=== PATIENT | female | born 1965 | race Caucasian/White ===

== ENCOUNTER 2018-02-03 20:00 | Emergency (ER) | payer BC, OTHER ==
--- NOTE | 2018-02-03 20:42 | RAD ---
AP VIEW CHEST: 02/03/18 HISTORY: Chest pain. AP view chest is obtained on 02/03/18. Comparison made to previous exam from 08/09/12. AP view chest demonstrates the lungs to be well aerated. No evidence of active intrathoracic disease seen. No evidence of effusions, pneumonia or pneumothorax seen. IMPRESSION: Unremarkable AP view chest. POS: [facility]
[2018-02-03 21:02] LABS: Hemoglobin 13.3 g/dL (12.0-16.0); Mean Corpuscular Volume 87.9 fL (78.0-98.0); Red Blood Cell (RBC) Count 4.43 mill/uL (4.20-5.40)
[2018-02-03 21:03] LABS: #Neutrophils 4.6 thou/uL (1.40-6.50); %Basophils 1.2 % (0.0-1.0); %Eosinophils 1.9 % (0.0-10.0); %Lymphocytes 33.4 % (21.0-51.0); %Monocytes 6.6 % (0.0-10.0); %Neutrophils 56.9 % (42.0-75.0); Mean Corpuscular HGB CONC 34.3 g/dL (32.0-36.0); Mean Corpuscular Hemoglobin 30.1 pg (27.0-31.0); Mean Platelet Volume 7.6 fL (7.4-10.4); Platelet Count 347 thou/uL (130-400); RBC Distribution Width 11.1 % (11.5-14.5)
[2018-02-03 21:04] LABS: #Basophils 0.1 thou/uL (0.0-0.2); #Eosinphils 0.2 thou/uL (0.0-0.7); #Lymphocytes 2.7 thou/uL (1.20-3.40); #Monocytes 0.5 thou/uL (0.11-0.59)
[2018-02-03 21:05] LABS: CKMB 4.3 ng/mL (0-6.6); Troponin I Less than 0.010 ng/mL (< 0.028)
[2018-02-03 21:06] LABS: BUN (Urea Nitrogen) 15 mg/dL (9.8-20.1); Calc. Creatinine Clearance 0 mL/min (70-130); Carbon Dioxide 28 mmol/L (22-29); Chloride 104 mmol/L (98-107); Estimated GFR-MDRD 64; Potassium 3.6 mmol/L (3.5-5.1); Sodium 140 mmol/L (136-145)
[2018-02-03 21:07] LABS: ALT (SGPT) 24 U/L (8-55); AST (SGOT) 25 U/L (5-34); Albumin 4.3 g/dL (3.5-5.0); Alkaline Phosphatase 79 U/L (40-150); Bilirubin, Total 0.3 mg/dL (0.2-1.2); CK (CPK) 220 U/L (29-168); Calcium 9.5 mg/dL (7.8-10.44); Globulin 2.8 g/dL (2.4-3.5); Glucose 101 mg/dL (70-105); Protein, Total 7.1 g/dL (6.0-8.3)
[2018-02-03 21:09] LABS: Anion Gap 12 mmol/L (10-20)
[2018-02-03 22:33] LABS: Troponin I Less than 0.010 ng/mL (< 0.028)
== END 2018-02-03 22:44 | disposition home or self-care (01) ==
LOC: SCSER 20:00
DX: R07.89 Other chest pain (principal); I10 Essential (primary) hypertension; F41.9 Anxiety disorder, unspecified; F32.9 Major depressive disorder, single episode, unspecified; Z79.899 Other long term (current) drug therapy
CPT/HCPCS: 71045; 80053; 82553; 84484; 85025; 93005

== ENCOUNTER 2018-12-09 13:20 | Emergency (ER) | payer BC | END 2018-12-09 14:18 | disposition home or self-care (01) | LOC: SCSER 13:20 | DX: J32.9 Chronic sinusitis, unspecified (principal); F41.9 Anxiety disorder, unspecified; F32.9 Major depressive disorder, single episode, unspecified; Z79.899 Other long term (current) drug therapy | CPT/HCPCS: 99282 ==

== ENCOUNTER 2019-01-21 21:20 | Emergency (ER) | payer BC ==
[2019-01-21] MEDS ORDERED: Ketorolac Tromethamine 30 MG/ML VIAL ONE ×2 (21:56)
--- NOTE | 2019-01-21 23:04 | RAD ---
XR Cerv Sp Ap Lat STANDARD HISTORY: Neck pain radiating into left arm. COMPARISON: None. FINDINGS: The patient has undergone anterior cervical fusion. There is been placement of a plate and screws extending from C5 to C7. Moderate disc narrowing is seen at C4-5. No soft tissue swelling. Degenerative facet changes are noted. IMPRESSION: Postoperative changes and moderate arthritic changes of the spine.
--- NOTE | 2019-01-21 23:05 | RAD ---
XR Lumbar Spine 2 Or 3 View HISTORY: Low back pain. COMPARISON: None. FINDINGS: The vertebral bodies are normal in height. There are degenerative osteophytes along the cou rse of the lumbar spine. There is marked degenerative disc narrowing at L4-5. Pedicles appear intact. IMPRESSION: Marked degenerative disc narrowing at L4-5.
== END 2019-01-21 23:51 | disposition home or self-care (01) ==
LOC: ERS 21:20
DX: S16.1XXA Strain of muscle, fascia and tendon at neck level, initial encounter (principal); S39.012A Strain of muscle, fascia and tendon of lower back, initial encounter; M54.12 Radiculopathy, cervical region; F32.9 Major depressive disorder, single episode, unspecified; F41.9 Anxiety disorder, unspecified; F90.9 Attention-deficit hyperactivity disorder, unspecified type; Z79.899 Other long term (current) drug therapy; X50.9XXA Other and unspecified overexertion or strenuous movements or postures, initial encounter
CPT/HCPCS: 72040; 72100; 96372; J1885

== ENCOUNTER 2020-07-25 15:12 | Outpatient (CLI) | payer BC | END 2020-07-25 15:13 | disposition home or self-care (01) | LOC: BICRAD 15:12 | PROVIDERS: ATTEND Nurse Practitioner Family | DX: M51.36 Other intervertebral disc degeneration, lumbar region (principal); M54.6 Pain in thoracic spine; M47.22 Other spondylosis with radiculopathy, cervical region; M47.814 Spondylosis without myelopathy or radiculopathy, thoracic region; M47.816 Spondylosis without myelopathy or radiculopathy, lumbar region; Z98.1 Arthrodesis status | CPT/HCPCS: 72050; 72072; 72110 ==

== ENCOUNTER 2020-08-12 08:43 | Outpatient (CLI) | payer BC | END 2020-08-12 08:44 | disposition home or self-care (01) | LOC: SCSMRI 08:43 | PROVIDERS: ATTEND Nurse Practitioner Family | DX: M47.22 Other spondylosis with radiculopathy, cervical region (principal); Z98.1 Arthrodesis status | CPT/HCPCS: 72141 ==

== ENCOUNTER 2020-09-04 13:14 | Emergency (ER) | payer BC ==
[2020-09-04] MEDS ORDERED: Ketorolac Tromethamine 30 MG/ML VIAL ONE (15:47)
[2020-09-04] MEDS ORDERED: predniSONE 20 MG TAB ONE (15:47)
== END 2020-09-04 16:05 | disposition home or self-care (01) ==
LOC: ERS 13:14
DX: M54.12 Radiculopathy, cervical region (principal); M62.838 Other muscle spasm; Z87.891 Personal history of nicotine dependence; Z79.82 Long term (current) use of aspirin; Z79.891 Long term (current) use of opiate analgesic; Z79.899 Other long term (current) drug therapy
CPT/HCPCS: 96372; 99283; J1885; J7512

== ENCOUNTER 2020-11-04 15:02 | Outpatient (CLI) | payer BC | END 2020-11-04 15:03 | disposition home or self-care (01) | LOC: LABBT 15:02 | PROVIDERS: ATTEND Surgery | DX: Z01.818 Encounter for other preprocedural examination (principal); M50.10 Cervical disc disorder with radiculopathy, unspecified cervical region; M48.02 Spinal stenosis, cervical region; Z20.822 Contact with and (suspected) exposure to COVID-19 | CPT/HCPCS: 80048; 85027; 85610; 85730; 86850; 86900; 86901; 93005; 93010; U0003; U0005 ==

== ENCOUNTER 2020-11-07 06:08 | Observation (INO) | payer BC ==
[2020-11-04 16:08] LABS: Mean Corpuscular HGB CONC 32.4 g/dL (32.0-36.0); Mean Corpuscular Hemoglobin 30.2 pg (27.0-33.0); Mean Corpuscular Volume 93.3 fl (81.6-98.3); Mean Platelet Volume 9.6 fl (7.4-10.4); Platelet Count 469 10x3/uL (150-450); RBC Distribution Width 12.4 % (11.5-14.5); White Blood Cell (WBC) Count 7.3 10x3/uL (3.5-10.5)
[2020-11-04 16:24] LABS: INR-International Normal Ratio 0.9; PTT 26.6 sec (22.0-33.0); Prothrombin Time 10.2 sec (9.5-12.1)
[2020-11-04 16:28] LABS: Anion Gap 12 mmol/L (10-20); BUN (Urea Nitrogen) 15 mg/dL (9.8-20.1); Calc. Creatinine Clearance 0 mL/min (70-130); Calcium 9.4 mg/dL (7.8-10.44); Carbon Dioxide 26 mmol/L (22-29); Chloride 105 mmol/L (98-107); Glucose 87 mg/dL (70-105); Potassium 3.9 mmol/L (3.5-5.1); Sodium 139 mmol/L (136-145)
[2020-11-05 08:03] LABS: SARS-CoV-2 PCR by NAA Not Detected (NotDetected)
[2020-11-07] MEDS ORDERED: Clindamycin/D5W 900 mg/50 ml Premix Bag ONE (06:38)
[2020-11-07] MEDS ORDERED: Levofloxacin 500 mg/D5W 100 ml Premix Bag ONE (06:38)
[2020-11-07] MEDS ORDERED: Thrombin 5000 UNITS/5 ML VIAL ONE (06:40)
[2020-11-07] MEDS ORDERED: Fentanyl 250 MCG/5 ML VIAL ONE (06:55)
[2020-11-07] MEDS ORDERED: Propofol 1,000 MG/100 ML VIAL IV ONE (07:05)
[2020-11-07] MEDS ORDERED: Dexmedetomidine 200 MCG/2 ML VIAL ONE (07:05)
[2020-11-07] MEDS ORDERED: Midazolam HCl 2 mg/2 ml Vial ONE (07:23)
[2020-11-07] MEDS ORDERED: Rocuronium Bromide 10 MG/ML (10ML VIAL) ONE (07:51)
[2020-11-07] MEDS ORDERED: Lidocaine 1% PF 5 ML VIAL ONE (07:51)
[2020-11-07] MEDS ORDERED: PROPOFOL 200 MG/20 ML VIAL ONE (07:51)
[2020-11-07] MEDS ORDERED: Dexamethasone 20 MG/5 ML VIAL ONE (07:51)
[2020-11-07] MEDS ORDERED: Ondansetron PF 4 MG/2 ML Vial ONE (07:51)
[2020-11-07] MEDS ORDERED: Ondansetron HCl/PF 4 MG/2 ML Vial IVP PRN (09:51)
[2020-11-07] MEDS ORDERED: Promethazine HCl 25 MG/ML VIAL IM PRN (09:51)
[2020-11-07] MEDS ORDERED: Promethazine HCl 25 MG/ML VIAL IVPB PRN (09:51)
[2020-11-07] MEDS ORDERED: SUGAMMADEX SODIUM 200 MG/2 ML VIAL ONE (10:06)
[2020-11-07] MEDS ORDERED: HYDROmorphone 2 MG/ML VIAL ONE (10:27)
[2020-11-07] MEDS ORDERED: Ondansetron PF 4 MG/2 ML Vial IVP PRN (10:30)
[2020-11-07] MEDS ORDERED: traMADol HCl 50 MG TAB PO PRN (10:30)
[2020-11-07] MEDS ORDERED: Acetaminophen 325 MG TAB PO PRN (10:30)
[2020-11-07] MEDS ORDERED: Acetaminophen/Codeine 30-300mg Tablet PO PRN ×2 (10:33→11:20)
[2020-11-07] MEDS ORDERED: Fentanyl 100 MCG/2 ML VIAL ONE (10:50)
[2020-11-07] MEDS ORDERED: Promethazine HCl 25 MG/ML VIAL ONE (11:38)
[2020-11-07] MEDS: Morphine 2 MG/ML VIAL SLOW IVP PRN ×2 (14:59→19:58)
[2020-11-07] MEDS: Clindamycin/D5W 900 MG in Premix Bag 1 BAG IVPB SCH ×2 (15:01→20:50)
[2020-11-07] MEDS: Cyclobenzaprine 10 MG TAB PO PRN (15:01)
[2020-11-07] MEDS: oxyCODONE 5 MG TAB PO PRN (17:44)
[2020-11-07 18:38] VITALS: BMI 28.5
[2020-11-07] MEDS: Sodium Chloride 0.9% 1,000 ML IV SCH (19:08)
[2020-11-07] MEDS ORDERED: Gabapentin 300 MG CAP PO SCH (21:00)
[2020-11-07] MEDS ORDERED: DULoxetine 60 MG CAP PO SCH (21:00)
[2020-11-08] MEDS: Cyclobenzaprine 10 MG TAB PO PRN ×2 (00:09→05:58)
[2020-11-08] MEDS: oxyCODONE 5 MG TAB PO PRN ×3 (00:10→11:47)
[2020-11-08 04:14] VITALS: TEMP 98.2
[2020-11-08] MEDS: Sodium Chloride 0.9% 1,000 ML IV SCH (04:52)
[2020-11-08] MEDS: Clindamycin/D5W 900 MG in Premix Bag 1 BAG IVPB SCH (05:58)
[2020-11-08] MEDS ORDERED: Bupropion 150 MG XL TAB PO SCH (09:00)
[2020-11-08] MEDS ORDERED: Triamterene/Hydrochlorothiazide 37.5 mg/25 mg Tablet PO SCH (09:00)
[2020-11-08] MEDS: Morphine 2 MG/ML VIAL SLOW IVP PRN (09:56)
[2020-11-08] MEDS ORDERED: diphenhydrAMINE 25 MG CAP PO PRN (10:49)
[2020-11-08 11:41] VITALS: BP 104/70
[2020-11-08 19:56] LABS: SARS-CoV-2 IgG Ab Non-Reactive (NonReactive)
[2020-11-08 19:57] LABS: SARS-CoV-2 IgG Index 0.86 S/CO (< 1.40)
== END 2020-11-08 14:40 | disposition home or self-care (01) ==
LOC: SDC 06:08 → SURG A 13:20
PROVIDERS: ADMIT Surgery; ATTEND Surgery
PROC: 0RG40A0 Fusion of Cervicothoracic Vertebral Joint with Interbody Fusion Device, Anterior Approach, Anterior Column, Open Approach (ICD-10-PCS; principal; 2020-11-07)
PROC: 0RG10J1 Fusion of Cervical Vertebral Joint with Synthetic Substitute, Posterior Approach, Posterior Column, Open Approach (ICD-10-PCS; 2020-11-07)
DX: M50.13 Cervical disc disorder with radiculopathy, cervicothoracic region (principal); M48.02 Spinal stenosis, cervical region; I10 Essential (primary) hypertension; M19.90 Unspecified osteoarthritis, unspecified site; J45.909 Unspecified asthma, uncomplicated; Z79.899 Other long term (current) drug therapy; Z88.0 Allergy status to penicillin; Z88.1 Allergy status to other antibiotic agents; Z88.5 Allergy status to narcotic agent; Z91.040 Latex allergy status; Z91.018 Allergy to other foods; Z98.1 Arthrodesis status; Z20.822 Contact with and (suspected) exposure to COVID-19
CPT/HCPCS: 36415; 76000; 80048; 85027; 85610; 85730; 86769; 86850; 86900; 86901; 96374; 96375; 96376; C1713; C1776; G0378; J1100; J1170; J1956; J2250; J2270; J2405; J2550; J2704; J3010; J3490; U0003; U0005

== ENCOUNTER 2020-12-18 09:59 | Outpatient (CLI) | payer BC | END 2020-12-18 10:00 | disposition home or self-care (01) | LOC: BICRAD 09:59 | PROVIDERS: ATTEND Physician Assistant | DX: M48.02 Spinal stenosis, cervical region (principal); M50.20 Other cervical disc displacement, unspecified cervical region; M47.812 Spondylosis without myelopathy or radiculopathy, cervical region; Z98.1 Arthrodesis status | CPT/HCPCS: 72040 ==

== ENCOUNTER 2020-12-26 10:39 | Outpatient (CLI) | payer BC | END 2020-12-26 10:40 | disposition home or self-care (01) | LOC: BICRAD 10:39 | PROVIDERS: ATTEND Physician Assistant | DX: M48.02 Spinal stenosis, cervical region (principal); M50.20 Other cervical disc displacement, unspecified cervical region; M47.812 Spondylosis without myelopathy or radiculopathy, cervical region; Z98.1 Arthrodesis status; V89.2XXD Person injured in unspecified motor-vehicle accident, traffic, subsequent encounter | CPT/HCPCS: 72040 ==

== ENCOUNTER 2021-03-01 23:17 | Emergency (ER) | payer BC | END 2021-03-02 00:07 | disposition home or self-care (01) | LOC: ERS 23:17 | DX: L25.9 Unspecified contact dermatitis, unspecified cause (principal); J45.909 Unspecified asthma, uncomplicated; Z87.891 Personal history of nicotine dependence | CPT/HCPCS: 99282 ==

== ENCOUNTER 2021-05-22 09:30 | Outpatient (CLI) | payer BC | END 2021-05-22 09:31 | disposition home or self-care (01) | LOC: SCSMRI 09:30 | PROVIDERS: ATTEND Specialist | DX: M47.22 Other spondylosis with radiculopathy, cervical region (principal); M47.24 Other spondylosis with radiculopathy, thoracic region; Z98.890 Other specified postprocedural states | CPT/HCPCS: 72141 ==

== ENCOUNTER 2022-05-27 10:05 | Outpatient (CLI) | payer BC ==
[2022-05-27 14:59] LABS: #Basophils 0.1 thou/uL (0.0-0.2); #Eosinphils 0.1 thou/uL (0.0-0.7); #Lymphocytes 1.9 thou/uL (1.20-3.40); #Monocytes 0.4 thou/uL (0.11-0.59); %Basophils 1.2 % (0.0-1.0); %Eosinophils 1.6 % (0.0-10.0); %Lymphocytes 35.8 % (21.0-51.0); %Monocytes 6.5 % (0.0-10.0); Mean Corpuscular HGB CONC 33.8 g/dL (32.0-36.0); Mean Corpuscular Hemoglobin 31.7 pg (27.0-31.0); Mean Platelet Volume 7.4 fL (7.4-10.4); Platelet Count 386 10x3/uL (130-400); RBC Distribution Width 11.8 % (11.5-14.5); Red Blood Cell (RBC) Count 4.42 mill/uL (4.20-5.40); White Blood Cell (WBC) Count 5.4 10x3/uL (4.8-10.8)
[2022-05-27 15:38] LABS: Bacteria/HPF None Seen HPF (None Seen); Bilirubin Negative (Negative); Blood, Urine Negative (Negative); Clarity Clear (Clear); Glucose, Urine (Dipstick) Normal (Negative); Ketone, Urine Negative (Negative); Leukocyte Negative Leu/uL (Negative); Nitrite Negative (Negative); Protein, Urine (Dipstick) 30 mg/dL (Neg-Trace); RBC/HPF 0-3 HPF (0-3); Urobilinogen Normal mg/dL (Less than 2); WBC/HPF 0-3 HPF (0-3); pH, Urine 5.5 (5.0-9.0)
[2022-05-27 15:42] LABS: ALT (SGPT) 23 U/L (8-55); AST (SGOT) 20 U/L (5-34); Albumin 4.5 g/dL (3.5-5.0); Alkaline Phosphatase 80 U/L (40-110); Anion Gap 14 mmol/L (10-20); BUN (Urea Nitrogen) 13 mg/dL (9.8-20.1); Bilirubin, Total 0.5 mg/dL (0.2-1.2); Calc. Creatinine Clearance 0 mL/min (70-130); Calcium 9.4 mg/dL (7.8-10.44); Carbon Dioxide 21 mmol/L (22-29); Cardiac Risk 3.4 (Less than 4.5); Chloride 109 mmol/L (98-107); Cholesterol 223 mg/dl (< 200 Desired); Estimated GFR 78; Globulin 2.4 g/dL (2.4-3.5); Glucose 97 mg/dL (70-105); HDL Cholesterol 66 mg/dL (>60 Neg Risk); LDL Cholesterol, Calculated 139 mg/dL; Potassium 4.2 mmol/L (3.5-5.1); Protein, Total 6.9 g/dL (6.0-8.3); Sodium 140 mmol/L (136-145); Triglycerides 89 mg/dL (Less than 150)
[2022-05-27 16:04] LABS: Thyroid Stimulating Hormone 1.1927 uIU/mL (0.35-4.94); Vitamin D, 25 Hydroxy 26.9 ng/ml (> 30.0)
== END 2022-05-27 10:06 | disposition home or self-care (01) ==
LOC: SCSRAD 10:05
PROVIDERS: ATTEND Family Medicine
DX: Z00.00 Encounter for general adult medical examination without abnormal findings (principal); M79.645 Pain in left finger(s); E55.9 Vitamin D deficiency, unspecified
CPT/HCPCS: 36415; 80053; 80061; 81001; 82306; 84443; 85025

== ENCOUNTER 2023-02-23 11:30 | Outpatient (CLI) | payer BC | END 2023-02-23 11:31 | disposition home or self-care (01) | LOC: SCSMRI 11:30 | PROVIDERS: ATTEND Physician Assistant | DX: H90.3 Sensorineural hearing loss, bilateral (principal) | CPT/HCPCS: 70553 ==

== ENCOUNTER 2024-11-16 13:15 | Outpatient (CLI) | payer BC | END 2024-11-16 13:16 | disposition home or self-care (01) | LOC: SCSMRI 13:15 | PROVIDERS: ATTEND Surgery | DX: M48.02 Spinal stenosis, cervical region (principal); M48.03 Spinal stenosis, cervicothoracic region | CPT/HCPCS: 72141 ==

== ENCOUNTER 2024-12-08 15:03 | Outpatient (CLI) | payer BC | END 2024-12-08 15:04 | disposition home or self-care (01) | LOC: SCSMRI 15:03 | PROVIDERS: ATTEND Orthopaedic Surgery | DX: S83.232A Complex tear of medial meniscus, current injury, left knee, initial encounter (principal); S83.512A Sprain of anterior cruciate ligament of left knee, initial encounter; M25.462 Effusion, left knee; M94.8X6 Other specified disorders of cartilage, lower leg ==

== ENCOUNTER 2024-12-21 12:45 | Outpatient (CLI) | payer BC | END 2024-12-21 12:46 | disposition home or self-care (01) | LOC: SCSMRI 12:45 | PROVIDERS: ATTEND Family Medicine | DX: M47.814 Spondylosis without myelopathy or radiculopathy, thoracic region (principal); M47.896 Other spondylosis, lumbar region; M47.813 Spondylosis without myelopathy or radiculopathy, cervicothoracic region; M48.03 Spinal stenosis, cervicothoracic region; M48.061 Spinal stenosis, lumbar region without neurogenic claudication; M48.07 Spinal stenosis, lumbosacral region | CPT/HCPCS: 72146; 72148 ==

== ENCOUNTER 2025-02-20 13:12 | Outpatient (CLI) | payer BC | END 2025-02-20 13:13 | disposition home or self-care (01) | LOC: SCSRAD 13:12 | PROVIDERS: ATTEND Family Medicine | DX: M25.512 Pain in left shoulder (principal) ==